=== PATIENT | male | born 1970 | race Caucasian/White ===

== ENCOUNTER 2021-07-20 00:04 | Emergency (ER) | payer SELFPAY ==
[~2021-07-20 00:04] MED LIST: IMDUR ER TAB 3030 MG PO
== END 2021-07-20 00:55 | disposition home or self-care (01) ==
LOC: ER1 00:04
DX: S61.310A Laceration without foreign body of right index finger with damage to nail, initial encounter (principal); E11.9 Type 2 diabetes mellitus without complications; Z88.2 Allergy status to sulfonamides; W45.8XXA Other foreign body or object entering through skin, initial encounter; Y99.0 Civilian activity done for income or pay
CPT/HCPCS: 73140; 90471; 90714; 99283